=== PATIENT | female | born 1965 | race Caucasian/White ===

== ENCOUNTER → 2018-09-25 | Outpatient (CLI) | payer OTHER ==
--- NOTE | ~2018-09-25 | SLE ---
[facility] [place] [address] POLYSOMNOGRAPHY STUDY Name: KAIDEN GILLILAND Room #: REG [facility]#: [id number] Admission: 09/25/18 Attend Phys: Syed Mann MD Discharge: Date of : 63 Report #: [id number] THIS REPORT FOR: //name// CC: Syed Leonardo NP DATE OF SERVICE: 09/25/2018 ATTENDING PHYSICIAN: Precious Leonardo NP. The patient is 53 years old who weighs 184 pounds and is 60 inches tall with a BMI of 35.9. The patient's [place] score was 9. The patient underwent a split night study at [facility]. During the night study, the patient spent 471 minutes in bed and slept for 395 minutes with a sleep efficiency of 84%. Sleep latency was 44.8 minutes with a REM latency of 263.8 minutes. Overall, sleep architecture showed normal stage 1 sleep, increased stage 2 sleep, which was 90% of the total sleep time. Normal N3 sleep and reduced REM sleep, which was 5% of the total sleep time. During the initial diagnostic portion of the study, the patient slept for 156 minutes. During that time, the patient had 2 apneas, both were obstructive and 54 hypopneas. The patient's apnea hypopnea index was 21.5 per hour. REM sleep was not seen during the diagnostic portion of the study, which could have underestimated the severity of sleep apnea. Supine index was 21.5 per hour as well. EKG monitoring revealed average heart rate of 62 beats per minute with a maximum of 70 beats per minute. No sustained arrhythmias observed. No clinically significant PLMs observed. Nocturnal oximetry study revealed an average oxygen saturation of 91% with a lowest of 86%. 32 minutes were spent at an oxygen saturation of less than 89%. The patient met the criteria for CPAP initiation. It was started at 5 cm water and titrated up to 13 cm water. At a pressure of 9 cm water, the patient slept for 15.8 minutes. The patient's AHI was 22.8 per hour due to 4 hypopneas and 2 central apneas. However, beyond the pressure of 9 cm water, the patient had increasing central apneas, which were likely treatment emergent central apneas. At a final CPAP pressure of 13 cm water, the patient slept for 93.8 minutes. The patient had no REM sleep, but supine sleep throughout. The patient had 31 central apneas, 3 obstructive and 1 mixed apnea and 1 hypopnea, resulting in apnea-hypopnea index of 23 per hour, predominantly from treatment emergent central apneas. Oxygen saturation remained above 90%. Optimum CPAP pressure [facility] [address] [place] [address] POLYSOMNOGRAPHY STUDY Name: KAIDEN GILLILAND [id number] Admission: 09/25/18 Attend Phys: Syed Mann MD Discharge: Date of : 63 Report #: [id number] was not achieved. I would recommend the patient should be placed on an AutoPAP at a minimum pressure of 7 cm water and a maximum pressure of 15 cm water. IMPRESSION: 1. Moderate sleep apnea-hypopnea syndrome at an apnea hypopnea index of 21.5 per hour. Absence of REM sleep during the diagnostic portion of the study can underestimate the severity of sleep apnea. 2. Nocturnal hypoxia secondary to obstructive sleep apnea and hypoventilation. 3. No clinically significant periodic limb movements. RECOMMENDATIONS: 1. Optimum CPAP pressure was not achieved due to treatment emergent central apneas at pressures beyond 9 cm water. I would recommend the patient should be placed on an auto CPAP with a minimum pressure of 7 cm water and a maximum pressure of 15 cm water. 2. The patient should have a download information in 30 days to make sure AHI remains less than 5 per hour. If AHI remains consistently above 10 per hour, then the patient may need to return to the sleep lab for an optimum CPAP titration study. 3. Avoid [employer] depressants. 4. Weight loss is advised. 5. Caution regarding driving until symptoms of sleep apnea resolve with the above recommendations. <ELECTRONICALLY SIGNED> By: Syed Mann MD 10/04/18 [id number] Syed Mann MD /nt
== END ==
LOC: SLEEPLAB 13:11
DX: G47.33 Obstructive sleep apnea (adult) (pediatric) (principal); R09.02 Hypoxemia